=== PATIENT | male | born 1960 | race Caucasian/White ===

== ENCOUNTER 2016-03-11 02:47 | Emergency (ER) | payer BC ==
[~2016-03-11] VITALS: Ht 177.8 cm; Wt 109.8 kg
[~2016-03-11 02:47] MED LIST: ASPIRIN CHEWABL81 MG PO; ASPIRIN81 M1 PO; ATARAX25 MG PO; BENADRYL25 MG PO; CRESTOR10 M1 PO; CRESTOR5 MG PO; FLAGYL500 MG PO; LOMOTIL 0.025 M1 TAB PO; MEDROL DOSEPAK4 MG PO; PEPCID20 MG PO; POTASSIUM CHLO10 ME2 PO; PREDNICOT20 MG PO; PREDNISONE20 M1 PO; PREDNISONE50 MG PO; TAGAMET300 MG PO; TENORETIC 100 T1 TAB PO; TENORMIN100 MG PO; VITAMIN D2000 IU PO; WAL-SOM50 MG PO; ZANTAC15 MG/ML PO; ZOFRAN4 MG PO
[2016-03-11] MEDS ORDERED: VITAMIN D34000 UNIT PO (02:56)
[2016-03-11] MEDS ORDERED: ATENOLOL25 MG PO (02:57)
[2016-03-11] MEDS ORDERED: CHLORTHALIDONE25 MG PO (02:57)
[2016-03-11 04:57] VITALS: BP 144/86
[2016-03-11] MEDS ORDERED: PREDNISONE20 M1 PO (05:12)
[2016-03-11] MEDS ORDERED: CIMETIDINE300 MG PO (05:12)
[2016-03-24] MEDS ORDERED: KLOR-CON 1010 ME1 PO (09:27)
[2016-03-24] MEDS ORDERED: PREDNISONE50 MG PO (12:57)
[2016-03-24] MEDS ORDERED: PREDNISONE10 MG PO (13:00)
== END 2016-03-11 05:44 | disposition home or self-care (01) ==
LOC: ED 02:47
DX: T78.3XXA Angioneurotic edema, initial encounter (principal); I10 Essential (primary) hypertension; E78.5 Hyperlipidemia, unspecified; Z90.49 Acquired absence of other specified parts of digestive tract; Z88.8 Allergy status to other drugs, medicaments and biological substances; Z91.018 Allergy to other foods

== ENCOUNTER → 2016-09-27 | Outpatient (CLI) | payer BC ==
[~2016-09-27] MED LIST changes: +ATENOLOL25 MG PO; +CHLORTHALIDONE25 MG PO; +CIMETIDINE300 MG PO; +KLOR-CON 1010 ME1 PO; +PREDNISONE10 MG PO; +VITAMIN D34000 UNIT PO
[2016-09-27 16:39] LABS: BASO % 0.5 % (0.0-1.0); HEMATOCRIT 46.4 % (42.0-52.0); HEMOGLOBIN 15.8 g/dl (14.0-18.0); LYMPH # 1.1 10*3/uL (1.3-4.4); LYMPH % 17.5 % (27.0-41.0); MEAN CELL VOLUME 95.3 fl (80.0-94.0); MEAN CORPUSCULAR HGB 32.4 pg (27.0-31.0); MEAN CORPUSCULAR HGB CONC 34.1 g/dl (33.0-37.0); MEAN PLATELET VOLUME 10.2 fl (9.6-12.3); MONO # 0.2 10*3/uL (0.1-1.0); MONO % 2.5 % (3.0-9.0); NEUT # 4.8 10*3/uL (2.3-7.9); NEUT % 79.3 % (47.0-73.0); PLATELET COUNT AUTOMATED 175 10*3/uL (130-400); RED BLOOD COUNT 4.87 10*6/uL (4.50-5.90); RED CELL DISTRI WIDTH 12.3 % (0-14.5); WHITE BLOOD COUNT 6.1 10*3/uL (4.8-10.8)
[2016-09-28 08:12] LABS: COMPLEMENT C4 001834 23 mg/dL (14-44)
== END | disposition home or self-care (01) ==
LOC: LAB 16:11
PROVIDERS: Allergy & Immunology
DX: D84.1 Defects in the complement system (principal)

== ENCOUNTER 2016-12-23 19:15 | Emergency (ER) | payer BC ==
[~2016-12-23] VITALS: Ht 177.8 cm; Wt 90.7 kg
[2016-12-23 21:07] VITALS: BP 134/69
== END 2016-12-23 21:44 | disposition home or self-care (01) ==
LOC: ED 19:15
DX: T78.3XXA Angioneurotic edema, initial encounter (principal); I10 Essential (primary) hypertension; E78.5 Hyperlipidemia, unspecified; Z90.49 Acquired absence of other specified parts of digestive tract; Z88.8 Allergy status to other drugs, medicaments and biological substances; Z91.018 Allergy to other foods

== ENCOUNTER → 2017-09-09 | Outpatient (CLI) | payer BC | END | disposition home or self-care (01) | LOC: RAD 09:15 | DX: M25.521 Pain in right elbow (principal) ==

== ENCOUNTER 2017-10-29 12:08 | Emergency (ER) | payer OTHER, BC ==
[~2017-10-29] VITALS: Ht 180.3 cm; Wt 99.8 kg
[2017-10-29 12:10] VITALS: BP 141/69
== END 2017-10-29 14:37 | disposition home or self-care (01) ==
LOC: ED 12:08
DX: Z77.098 Contact with and (suspected) exposure to other hazardous, chiefly nonmedicinal, chemicals (principal); I10 Essential (primary) hypertension; E78.5 Hyperlipidemia, unspecified; E66.9 Obesity, unspecified; Z90.49 Acquired absence of other specified parts of digestive tract; Z79.899 Other long term (current) drug therapy; Z88.8 Allergy status to other drugs, medicaments and biological substances; Z91.018 Allergy to other foods

== ENCOUNTER 2019-06-22 02:56 | Inpatient (IN) | payer BC ==
[~2019-06-22] VITALS: Ht 177.8 cm; Wt 113.0 kg
[2019-06-22 02:57] VITALS: BP 138/78
[2019-06-22 03:27] LABS: BASO % 0.6 % (0.0-1.0); EOS # 0.2 10*3/uL (0.0-0.4); EOS % 3.4 % (1.0-4.0); HEMATOCRIT 42.9 % (42.0-52.0); LYMPH # 2.8 10*3/uL (1.3-4.4); LYMPH % 41.9 % (27.0-41.0); MEAN CELL VOLUME 98.6 fl (80.0-94.0); MEAN CORPUSCULAR HGB 33.3 pg (27.0-31.0); MEAN CORPUSCULAR HGB CONC 33.8 g/dl (33.0-37.0); MEAN PLATELET VOLUME 10.2 fl (9.6-12.3); MONO # 0.5 10*3/uL (0.1-1.0); MONO % 8.2 % (3.0-9.0); NEUT % 45.4 % (47.0-73.0); PLATELET COUNT AUTOMATED 150 10*3/uL (130-400); RED BLOOD COUNT 4.35 10*6/uL (4.50-5.90); RED CELL DISTRI WIDTH 12.4 % (0-14.5); WHITE BLOOD COUNT 6.6 10*3/uL (4.8-10.8)
[2019-06-22 03:43] LABS: ALBUMIN 3.6 gm/dl (3.1-4.5); BUN 11 mg/dl (7-24); CHLORIDE 109 mmol/L (98-107); CREATININE 0.88 mg/dL (0.70-1.30); POTASSIUM 3.8 mmol/L (3.5-5.1); SGOT/AST 51 IU/L (3-35); SGPT/ALT 73 U/L (12-78); SODIUM 140 mmol/L (136-145); TOTAL PROTEIN 7.3 gm/dL (6.4-8.2)
[2019-06-22 03:44] LABS: ALKALINE PHOSPHATASE 74 U/L (45-117)
--- NOTE | 2019-06-22 04:00 | NUR ---
PATIENT SPEECH MORE CLEAR AT THIS TIME. PER PATIENT FEELS LIKE SWELLING IS GOING DOWN IN TONGUE.
[2019-06-22 04:16] VITALS: BP 145/82
--- NOTE | 2019-06-22 04:29 | NUR ---
A 59, admitted to [facility], under the services of RAÚL Hampton DO with a diagnosis of ANAPHALAXIS. Chief complaint is TONGUE SWELLING. Patient arrived via stretcher from ER. Monitor applied. Initial assessment completed. Vital signs taken and recorded. RAÚL HAMPTON DO notified of admission to the unit. Orders received. See assessment for past medical history, medications and allergies. Patient and/or family oriented to unit. [facility] visitation policy reviewed. Clothing/patient valuable form completed. JIE CORBIN
[2019-06-22] MEDS ORDERED: HYDR12.5C PO (04:37)
[2019-06-22 08:00] VITALS: BP 132/67
[2019-06-22] MEDS ORDERED: PREDNISONE10 MG PO (10:42)
[2019-06-22] MEDS ORDERED: ALLERGY RELIEF25 MG PO (10:42)
--- NOTE | 2019-06-22 11:03 | NUR ---
PATIENT DISCHARGED TO HOME. ALL PERSONAL BELONGINGS SENT WITH PATIENT. IV AND HOTEL SALES MANAGER DISCONTINUED. DISCHARGE INSTRUCTIONS AND PRESCRIPTIONS GIVEN TO PATIENT.
== END 2019-06-22 11:07 | disposition home or self-care (01) | DRG 916 ==
LOC: ED 02:56 → EDHOLD 03:52 → ICCU 04:02
PROVIDERS: Emergency Medicine; ADMIT Family Medicine
DX: T78.3XXA Angioneurotic edema, initial encounter (principal); I10 Essential (primary) hypertension; E66.01 Morbid (severe) obesity due to excess calories; E78.5 Hyperlipidemia, unspecified; Z68.35 Body mass index [BMI] 35.0-35.9, adult; Z91.018 Allergy to other foods; Z88.1 Allergy status to other antibiotic agents; Z90.49 Acquired absence of other specified parts of digestive tract; Z80.1 Family history of malignant neoplasm of trachea, bronchus and lung; Z82.49 Family history of ischemic heart disease and other diseases of the circulatory system; Z82.61 Family history of arthritis; Z79.899 Other long term (current) drug therapy

== ENCOUNTER 2019-08-17 18:18 | Emergency (ER) | payer BC ==
[~2019-08-17] VITALS: Ht 177.8 cm; Wt 108.9 kg
[~2019-08-17 18:18] MED LIST changes: +ALLERGY RELIEF25 MG PO; +HYDR12.5C PO
[2019-08-17 18:23] VITALS: BP 147/80
[2019-08-17 21:02] LABS: BASO % 0.2 % (0.0-1.0); EOS # 0.1 10*3/uL (0.0-0.4); EOS % 1.5 % (1.0-4.0); HEMATOCRIT 42.6 % (42.0-52.0); LYMPH # 1.3 10*3/uL (1.3-4.4); LYMPH % 20.2 % (27.0-41.0); MEAN CELL VOLUME 99.1 fl (80.0-94.0); MEAN CORPUSCULAR HGB CONC 33.3 g/dl (33.0-37.0); MEAN PLATELET VOLUME 10.6 fl (9.6-12.3); MONO # 0.2 10*3/uL (0.1-1.0); MONO % 3.5 % (3.0-9.0); NEUT # 4.8 10*3/uL (2.3-7.9); NEUT % 74.3 % (47.0-73.0); PLATELET COUNT AUTOMATED 157 10*3/uL (130-400); RED CELL DISTRI WIDTH 12.2 % (0-14.5); WHITE BLOOD COUNT 6.5 10*3/uL (4.8-10.8)
[2019-08-17 21:16] LABS: ALBUMIN 3.9 gm/dl (3.1-4.5); ALKALINE PHOSPHATASE 65 U/L (45-117); BUN 19 mg/dl (7-24); CHLORIDE 109 mmol/L (98-107); POTASSIUM 3.9 mmol/L (3.5-5.1); SGOT/AST 38 IU/L (3-35); SGPT/ALT 63 U/L (12-78); SODIUM 140 mmol/L (136-145); TOTAL PROTEIN 7.4 gm/dL (6.4-8.2)
== END 2019-08-17 21:06 | disposition left against medical advice (07) ==
LOC: ED 18:18
PROVIDERS: Nurse Practitioner Family
DX: T78.3XXA Angioneurotic edema, initial encounter (principal); E78.5 Hyperlipidemia, unspecified; I10 Essential (primary) hypertension; Z90.49 Acquired absence of other specified parts of digestive tract; Z88.8 Allergy status to other drugs, medicaments and biological substances; Z79.899 Other long term (current) drug therapy; X58.XXXA Exposure to other specified factors, initial encounter

== ENCOUNTER → 2019-08-26 | Outpatient (CLI) | payer BC | END | disposition home or self-care (01) | LOC: COVID19 00:06 | DX: Z01.818 Encounter for other preprocedural examination (principal); Z11.59 Encounter for screening for other viral diseases ==

== ENCOUNTER → 2019-08-31 | Day surgery (SDC) | payer BC ==
[~2019-08-31] VITALS: Ht 177.8 cm; Wt 104.3 kg
[2019-08-31 06:40] VITALS: BP 128/65
[2019-08-31 08:00] VITALS: BP 137/75
[2019-08-31 08:15] VITALS: BP 127/66
[2019-08-31 08:30] VITALS: BP 124/67
== END | disposition home or self-care (01) ==
LOC: SDC 08-27 08:45
DX: K62.5 Hemorrhage of anus and rectum (principal); K29.50 Unspecified chronic gastritis without bleeding; I10 Essential (primary) hypertension; E78.00 Pure hypercholesterolemia, unspecified; E78.5 Hyperlipidemia, unspecified; E66.9 Obesity, unspecified; Z68.33 Body mass index [BMI] 33.0-33.9, adult; Z98.890 Other specified postprocedural states; Z79.899 Other long term (current) drug therapy; Z82.49 Family history of ischemic heart disease and other diseases of the circulatory system

== ENCOUNTER → 2020-01-08 | Outpatient (CLI) | payer BC | END | disposition home or self-care (01) | LOC: MRI 08:51 | PROVIDERS: ATTEND Family Medicine | DX: S83.411A Sprain of medial collateral ligament of right knee, initial encounter (principal); S83.511A Sprain of anterior cruciate ligament of right knee, initial encounter; M25.461 Effusion, right knee; X58.XXXA Exposure to other specified factors, initial encounter; Y93.89 Activity, other specified; Y92.89 Other specified places as the place of occurrence of the external cause; Y99.8 Other external cause status ==

== ENCOUNTER 2021-10-30 03:31 | Emergency (ER) | payer BC ==
[~2021-10-30] VITALS: Ht 177.8 cm; Wt 106.6 kg
[2021-10-30] MEDS ORDERED: PREDNISONE20 M1 PO (05:39)
[2021-10-30] MEDS ORDERED: BENADRYL25 M2 PO (05:39)
[2021-10-30 06:03] VITALS: BP 150/85
== END 2021-10-30 05:55 | disposition home or self-care (01) ==
LOC: ED 03:31
DX: T78.49XA Other allergy, initial encounter (principal); Z88.8 Allergy status to other drugs, medicaments and biological substances; Z91.018 Allergy to other foods; Z79.899 Other long term (current) drug therapy; Z90.49 Acquired absence of other specified parts of digestive tract; Z98.890 Other specified postprocedural states; X58.XXXA Exposure to other specified factors, initial encounter

== ENCOUNTER 2022-04-17 16:16 | Emergency (ER) | payer BC ==
[~2022-04-17 16:16] MED LIST changes: +BENADRYL25 M2 PO
[2022-04-17 16:30] VITALS: BP 142/81
== END 2022-04-17 18:10 | disposition home or self-care (01) ==
LOC: ED 16:16
DX: M20.012 Mallet finger of left finger(s) (principal); I10 Essential (primary) hypertension; E78.00 Pure hypercholesterolemia, unspecified; Z91.018 Allergy to other foods; Z88.8 Allergy status to other drugs, medicaments and biological substances; Z90.49 Acquired absence of other specified parts of digestive tract; Z98.890 Other specified postprocedural states

== ENCOUNTER 2022-06-01 23:19 | Emergency (ER) | payer BC ==
[~2022-06-01] VITALS: Ht 177.8 cm; Wt 113.4 kg
[2022-06-01] MEDS ORDERED: CLARITIN10 MG PO (23:47)
[2022-06-02 02:00] VITALS: BP 134/84
== END 2022-06-02 02:03 | disposition home or self-care (01) ==
LOC: ED 23:19
DX: T78.40XA Allergy, unspecified, initial encounter (principal); I10 Essential (primary) hypertension; E78.00 Pure hypercholesterolemia, unspecified; Z91.018 Allergy to other foods; Z88.8 Allergy status to other drugs, medicaments and biological substances; Z90.49 Acquired absence of other specified parts of digestive tract; Z98.890 Other specified postprocedural states; X58.XXXA Exposure to other specified factors, initial encounter

== ENCOUNTER → 2022-08-07 | Outpatient (CLI) | payer BC ==
[~2022-08-07] MED LIST changes: +CLARITIN10 MG PO
== END | disposition home or self-care (01) ==
LOC: US 08-01 09:00
PROVIDERS: ATTEND Family Medicine
DX: K76.0 Fatty (change of) liver, not elsewhere classified (principal); R74.8 Abnormal levels of other serum enzymes

== ENCOUNTER 2022-11-13 12:06 | Emergency (ER) | payer BC ==
[~2022-11-13] VITALS: Ht 177.8 cm; Wt 104.3 kg
[2022-11-13 12:16] VITALS: BP 148/66
== END 2022-11-13 13:03 | disposition home or self-care (01) ==
LOC: ED 12:06
DX: S61.002A Unspecified open wound of left thumb without damage to nail, initial encounter (principal); I10 Essential (primary) hypertension; E78.00 Pure hypercholesterolemia, unspecified; Z91.018 Allergy to other foods; Z88.8 Allergy status to other drugs, medicaments and biological substances; Z98.890 Other specified postprocedural states; Z90.49 Acquired absence of other specified parts of digestive tract; W26.9XXA Contact with unspecified sharp object(s), initial encounter; Y93.89 Activity, other specified; Y92.89 Other specified places as the place of occurrence of the external cause; Y99.8 Other external cause status

== ENCOUNTER 2023-02-07 19:09 | Emergency (ER) | payer BC ==
[~2023-02-07] VITALS: Wt 104.3 kg
[2023-02-07 19:17] VITALS: BP 152/69
[2023-02-07] MEDS ORDERED: PREDNISONE50 MG PO (21:08)
== END 2023-02-07 21:20 | disposition home or self-care (01) ==
LOC: ED 19:09
DX: L50.9 Urticaria, unspecified (principal); T78.1XXA Other adverse food reactions, not elsewhere classified, initial encounter; I10 Essential (primary) hypertension; E78.00 Pure hypercholesterolemia, unspecified; Z91.018 Allergy to other foods; Z88.8 Allergy status to other drugs, medicaments and biological substances; Z90.49 Acquired absence of other specified parts of digestive tract; Z98.890 Other specified postprocedural states; X58.XXXA Exposure to other specified factors, initial encounter

== ENCOUNTER 2023-12-07 23:20 | Emergency (ER) | payer OTHER ==
[~2023-12-07] VITALS: Ht 175.2 cm; Wt 108.9 kg
[2023-12-07 23:41] VITALS: BP 160/79
[2023-12-07] MEDS ORDERED: methylPREDNISolone sod succ 125 MG VIAL IV ONE (23:45)
[2023-12-07] MEDS ORDERED: FAMOTIDINE 50 ML IV ONE (23:45)
[2023-12-07] MEDS ORDERED: diphenhydrAMINE hydrochloride 50 MG/ML VIAL IV ONE (23:45)
[2023-12-08] MEDS ORDERED: MEDROL DOSEPAK4 MG PO (00:59)
== END 2023-12-08 02:40 | disposition home or self-care (01) ==
LOC: ED 23:20
DX: T78.40XA Allergy, unspecified, initial encounter (principal); X58.XXXA Exposure to other specified factors, initial encounter; Z91.018 Allergy to other foods; Z88.8 Allergy status to other drugs, medicaments and biological substances; Z90.49 Acquired absence of other specified parts of digestive tract; Z98.890 Other specified postprocedural states; I10 Essential (primary) hypertension; E78.00 Pure hypercholesterolemia, unspecified

== ENCOUNTER 2024-04-27 23:01 | Emergency (ER) | payer MEDICARE ==
[~2024-04-27] VITALS: Ht 177.8 cm; Wt 108.9 kg
[2024-04-27] MEDS ORDERED: FAMOTIDINE 50 ML IV ONE (23:15)
[2024-04-27] MEDS ORDERED: TRANEXAMIC ACID IN NACL,ISO-OS 100 ML IV ONE (23:15)
[2024-04-27] MEDS ORDERED: diphenhydrAMINE hydrochloride 50 MG/ML VIAL IV ONE (23:15)
[2024-04-27] MEDS ORDERED: methylPREDNISolone sod succ 125 MG VIAL IV ONE (23:15)
[2024-04-28] MEDS ORDERED: TRANEXAMIC ACID IN NACL,ISO-OS 100 ML IV ONE (00:01)
[2024-04-28 00:15] VITALS: BP 148/76
== END 2024-04-28 01:26 | disposition home or self-care (01) ==
LOC: ED 23:01
DX: T78.3XXA Angioneurotic edema, initial encounter (principal); I10 Essential (primary) hypertension; K14.8 Other diseases of tongue; E78.00 Pure hypercholesterolemia, unspecified; Z88.8 Allergy status to other drugs, medicaments and biological substances; Z91.018 Allergy to other foods; Z90.49 Acquired absence of other specified parts of digestive tract; Z98.890 Other specified postprocedural states

== ENCOUNTER 2024-08-11 23:05 | Emergency (ER) | payer MEDICARE ==
[~2024-08-11] VITALS: Ht 177.8 cm; Wt 108.9 kg
[2024-08-11] MEDS ORDERED: SODIUM CHLORIDE 0.9% 1,000 ML IV ONE (23:55)
[2024-08-11] MEDS ORDERED: FAMOTIDINE 50 ML IV ONE ×2 (23:55)
[2024-08-11] MEDS ORDERED: Dexamethasone Sodium Phospha 20 MG/5 ML VIAL IV ONE (23:55)
[2024-08-11] MEDS ORDERED: diphenhydrAMINE hydrochloride 50 MG/ML VIAL IV ONE (23:55)
[2024-08-12 00:12] VITALS: BP 140/73
[2024-08-12 01:19] LABS: BASO # 0.0 10*3/uL (0.0-0.1); BASO % 0.4 % (0.0-1.0); EOS # 0.2 10*3/uL (0.0-0.4); EOS % 2.0 % (1.0-4.0); MEAN CELL VOLUME 100.7 fl (80.0-94.0); MEAN CORPUSCULAR HGB 33.1 pg (27.0-31.0); MEAN PLATELET VOLUME 10.2 fl (9.6-12.3); MONO # 0.8 10*3/uL (0.1-1.0); MONO % 9.5 % (3.0-9.0); NEUT # 4.7 10*3/uL (2.3-7.9); NEUT % 58.8 % (47.0-73.0); NUCLEATED RED BLOOD CELL 0.0 % (0.0-0.0); NUCLEATED RED BLOOD CELL 0.0 10*3/uL (0.0-0.0); PLATELET COUNT AUTOMATED 145 10*3/uL (130-400); RED CELL DISTRI WIDTH 12.2 % (0-14.5)
[2024-08-12 01:44] LABS: BUN 11 mg/dl (9-23)
[2024-08-12] MEDS ORDERED: IOHEXOL 300 MG/ML 100 ML VIAL IV ONE (02:10)
[2024-08-12] MEDS ORDERED: IOHEXOL 300 MG/ML 100 ML VIAL ONE (02:29)
== END 2024-08-12 13:47 | disposition short-term general hospital (02) ==
LOC: ED 23:05
PROVIDERS: Emergency Medicine
DX: J05.10 Acute epiglottitis without obstruction (principal); J39.2 Other diseases of pharynx; J38.4 Edema of larynx; I10 Essential (primary) hypertension; E78.00 Pure hypercholesterolemia, unspecified; E66.9 Obesity, unspecified; Z91.018 Allergy to other foods; Z88.8 Allergy status to other drugs, medicaments and biological substances; Z79.899 Other long term (current) drug therapy; Z90.49 Acquired absence of other specified parts of digestive tract